=== PATIENT | male | born 1985 | race Caucasian/White ===

== ENCOUNTER 2016-09-06 08:16 | Emergency (ER) | payer MEDICAID ==
[2016-09-06 08:28] VITALS: BP 134/77
[2016-09-06] MEDS ORDERED: LORazepam 1 MG Tab PO ONE (08:38)
--- NOTE | 2016-09-06 08:42 | EDM.PDOC ---
ED HPI GENERAL MEDICAL PROBLEM - General Chief Complaint: Chest Pain Stated Complaint: CHEST PAINS Time Seen by Provider: 09/06/16 08:30 Source of Information: Reports: Patient, Family, RN Notes Reviewed History Limitations: Reports: No Limitations - History of Present Illness INITIAL COMMENTS - FREE TEXT/NARRATIVE: 30-year-old male presents emergency department day complaint of chest pressure, he states the chest pressure started earlier this evening he feels like there is a weight on his chest with some pain radiating into his neck and he feels short of breath he was diaphoretic but no nausea or vomiting he has no significant heart history, takes no medications does not use tobacco products he does admit to being under a lot of stress Chest Pain Score (Numeric/FACES): 6 - Related Data Allergies Allergy/AdvReac Type Severity Reaction Status Date / Time No Known Allergies Allergy Verified 09/06/16 08:24 Home Meds: Home Meds NK [No Known Home Meds] 09/06/16 [History] Past Medical History Musculoskeletal History: Reports: Fracture Social & Family History - Tobacco Use Smoking Status *Q: Never Smoker - Recreational Drug Use Recreational Drug Use: No ED ROS GENERAL - Review of Systems Review Of Systems: See Below Constitutional: Reports: No Symptoms HEENT: Reports: No Symptoms Respiratory: Reports: Shortness of Breath Cardiovascular: Reports: Chest Pain GI/Abdominal: Denies: Nausea, Vomiting Musculoskeletal: Reports: No Symptoms Skin: Reports: No Symptoms Neurological: Reports: No Symptoms ED EXAM, GENERAL - Physical Exam Exam: See Below Free Text/Narrative:: General: Male, not in any distress, alert and oriented x3 HEENT: head is atraumatic normocephalic, eyes pupils equal round reactive to light, sclera clear no conjunctivitis appreciated. Ears tympanic membranes clear and skelton landmarks and light reflex are present bilaterally canals are clear. Nose no septal deviation, nares are clear, no blood present. Mouth mucosa is moist and pink no erythema or exudate noted in soft palate, tongue is midline uvula is midline, dentition is intact. Neck: Supple no thyromegaly no tracheal deviation. Nodes: Cervical nodes subclavicular nodes nontender no palpable lymphadenopathy noted. Lungs: clear to auscultation bilaterally with symmetrical respirations, no adventitious noise appreciated. CV: Regular rate and rhythm S1 and S2 appreciated no murmurs rubs or gallops noted. Abdomen: Soft, nontender, no palpable masses or organomegaly appreciated, no distention no guarding bowel sounds are present, . Neuro: Cranial nerves II through XII grossly intact Skin: Warm and dry, intact Extremities: No lower extremity edema appreciated . Course - Vital Signs Last Recorded V/S: Last Vital Signs Temp 95.4 F 09/06/16 08:19 Pulse 46 L 09/06/16 08:19 Resp 15 09/06/16 08:19 BP 134/77 09/06/16 08:19 Pulse Ox 100 09/06/16 08:19 - Orders/Labs/Meds Orders: Active Orders 24 hr Category Date Time Status Cardiac Monitoring [RC] .As Directed Care 09/06/16 08:37 Active EKG Documentation Completion [RC] ASDIRECTED Care 09/06/16 08:38 Active EKG 12 Lead [EK] Stat Ther 09/06/16 08:38 Ordered Labs: Laboratory Tests 09/06/16 09/06/16 Range/Units 08:46 08:46 D-Dimer, Quantitative < 100 (0.0-400.0) ng/mL Sodium 140 (140-148) mmol/L Potassium 3.7 (3.6-5.2) mmol/L Chloride 102 (100-108) mmol/L Carbon Dioxide 29 (21-32) mmol/L Anion Gap 8.6 (5.0-14.0) mmol/L BUN 19 H (7-18) mg/dL Creatinine 1.3 (0.8-1.3) mg/dL Est Cr Clr Drug Dosing 91.20 mL/min Estimated GFR (MDRD) > 60 (>60) Glucose 94 (74-106) mg/dL Calcium 8.3 L (8.5-10.1) mg/dL Total Bilirubin 0.6 (0.2-1.0) mg/dL AST 26 (15-37) U/L ALT 40 (12-78) U/L Alkaline Phosphatase 57 (46-116) U/L CK-MB (CK-2) 2.4 (0-3.6) mg/mL Troponin I < 0.017 (0.000-0.056) ng/mL Total Protein 7.6 (6.4-8.2) g/dL Albumin 4.1 (3.4-5.0) g/dL Globulin 3.5 (2.3-3.5) g/dL Albumin/Globulin Ratio 1.2 (1.2-2.2) Meds: Medications Discontinued Medications Generic Name Dose Route Start Last Admin Trade Name Chrissie PRN Reason Stop Dose Admin Lorazepam 1 mg 09/06/16 08:38 09/06/16 09:14 Ativan PO 09/06/16 08:39 Not Given ONETIME ONE Departure - Departure Time of Disposition: 09:55 Disposition: Home, Self-Care 01 Condition: good Clinical Impression: Atypical chest pain Forms: ED Department Discharge Additional Instructions: Please followup with your primary care provider in 3-5 days if not better, please call return to the emergency department with worsening of symptoms. - My Orders Last 24 Hours: My Active Orders 09/06/16 08:37 Cardiac Monitoring [RC] .As Directed 09/06/16 08:38 EKG Documentation Completion [RC] ASDIRECTED EKG 12 Lead [EK] Stat - Assessment/Plan Last 24 Hours: My Active Orders 09/06/16 08:37 Cardiac Monitoring [RC] .As Directed 09/06/16 08:38 EKG Documentation Completion [RC] ASDIRECTED EKG 12 Lead [EK] Stat Plan: Assessment Acuity = acute Site and laterality = chest pressure Etiology = suspicious for anxiety component portion of panic attack Manifestations = none Location of injury = home Lab values = CMP, troponin, CK-MB all within normal limits EKG demonstrates sinus bradycardia Plan After he was alone in the room for a period of time his pressure resolved 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 This note was dictated using [employer] voice recognition software please call with any questions.
== END 2016-09-06 10:12 | disposition home or self-care (01) ==
LOC: JP.ED 08:16
DX: R07.89 Other chest pain (principal)
CPT/HCPCS: 36415; 80053; 82553; 84484; 85379; 93005; 99285-25